=== PATIENT | male | born 1995 | race Native Hawaiian/Other Pacific Islander ===

== ENCOUNTER 2018-12-31 20:55 | Emergency (ER) | payer OTHER ==
[~2018-12-31] VITALS: Ht 185.4 cm; Wt 85.7 kg
[~2018-12-31 20:55] MED LIST: ALBU90OI INH; AMOX250CH PO; AMOX500 PO; AMOX50SU PO; ATOM25; ATOM40; HYDACE5 PO; IBUP100S PO; Motrin600 MG PO; RXCODACESY; TRAZ50
== END 2018-12-31 22:54 | disposition home or self-care (01) ==
LOC: ER 20:55
DX: S92.001A Unspecified fracture of right calcaneus, initial encounter for closed fracture (principal); W17.89XA Other fall from one level to another, initial encounter; Z79.899 Other long term (current) drug therapy; Z79.891 Long term (current) use of opiate analgesic
CPT/HCPCS: 29515; 70450; 72100; 73630; 99284-25

== ENCOUNTER 2020-05-14 10:23 | Emergency (ER) | payer OTHER ==
[~2020-05-14] VITALS: Ht 188 cm; Wt 95.2 kg
[2020-05-14] MEDS ORDERED: BENZ100A PO (12:03)
== END 2020-05-14 12:19 | disposition home or self-care (01) ==
LOC: ER 10:23
DX: U07.1 COVID-19 (principal); J12.82 Pneumonia due to coronavirus disease 2019; J20.9 Acute bronchitis, unspecified
CPT/HCPCS: 99284; A9270

== ENCOUNTER 2022-02-01 14:58 | Emergency (ER) | payer OTHER ==
[~2022-02-01] VITALS: Ht 188 cm; Wt 95.2 kg
[~2022-02-01 14:58] MED LIST changes: +BENZ100A PO
== END 2022-02-01 16:37 | disposition home or self-care (01) ==
LOC: ER 14:58
DX: S01.511A Laceration without foreign body of lip, initial encounter (principal); S01.81XA Laceration without foreign body of other part of head, initial encounter; Y04.2XXA Assault by strike against or bumped into by another person, initial encounter; Z87.891 Personal history of nicotine dependence
CPT/HCPCS: 12011; 99283-25

== ENCOUNTER 2022-02-06 14:40 | Emergency (ER) | payer OTHER ==
[~2022-02-06] VITALS: Ht 188 cm; Wt 95.2 kg
== END 2022-02-06 15:26 | disposition home or self-care (01) ==
LOC: ER 14:40
DX: S01.511D Laceration without foreign body of lip, subsequent encounter (principal); X58.XXXD Exposure to other specified factors, subsequent encounter
CPT/HCPCS: 99281

== ENCOUNTER → 2022-04-19 | Outpatient (CLI) | payer OTHER ==
[2022-04-22 12:09] LABS: HIV AB/P24 AG SCREEN Non Reactive (Non Reactive)
[2022-04-23 00:09] LABS: CHLAMYDIA BY NAA Negative (Negative); GONOCOCCUS BY NAA Negative (Negative); TRICH VAG BY NAA Negative (Negative)
[2022-04-23 00:09] LABS: HBSAG SCREEN Negative (Negative); HCV AB <0.1 (0.0-0.9); HEP A AB, IGM Negative (Negative); HEP B CORE AB, TOT Negative (Negative)
== END | disposition home or self-care (01) ==
LOC: LAB SHORT 19:08
PROVIDERS: Chiropractor
DX: Z72.51 High risk heterosexual behavior (principal)
CPT/HCPCS: 86592; 86695; 86696; 86704; 86708; 86803; 87340; 87389; 87491; 87591; 87661

== ENCOUNTER 2022-04-21 13:47 | Emergency (ER) | payer OTHER ==
[~2022-04-21] VITALS: Ht 188 cm; Wt 86.2 kg
== END 2022-04-21 15:35 | disposition home or self-care (01) ==
LOC: ER 13:47
DX: M25.562 Pain in left knee (principal)
CPT/HCPCS: 73562-LT

== ENCOUNTER 2023-09-28 04:02 | Emergency (ER) | payer OTHER ==
[~2023-09-28] VITALS: Ht 182.9 cm; Wt 90.7 kg
[2023-09-28] MEDS ORDERED: Amoxicillin/Clavulanate K 875 MG Tab PO ONE (04:15)
[2023-09-28 06:00] VITALS: BP 131/73
[2023-09-28] MEDS ORDERED: AMOCLA875 PO (06:17)
== END 2023-09-28 06:20 | disposition home or self-care (01) ==
LOC: ER 04:02
DX: S01.85XA Open bite of other part of head, initial encounter (principal); S01.152A Open bite of left eyelid and periocular area, initial encounter; W54.0XXA Bitten by dog, initial encounter; F17.210 Nicotine dependence, cigarettes, uncomplicated
CPT/HCPCS: 12013; 99283-25; A9270

== ENCOUNTER → 2024-06-09 | Outpatient (CLI) | payer OTHER ==
[~2024-06-09] MED LIST changes: +AMOCLA875 PO
[2024-06-10 18:18] LABS: HEPATITIS C AB CIA INTERP Negative (Negative); HEPATITIS C ANTIBODY CIA INDEX 0.15 IV
[2024-06-10 18:49] LABS: HIV 1,2 COMBO ANTIGEN/ANTIBODY Negative (Negative)
[2024-06-10 19:04] LABS: HEPATITIS B SURFACE ANTIGEN Negative (Negative)
[2024-06-11 14:51] LABS: APTIMA MEDIA TYPE Urine; C. TRACHOMATIS BY TMA Negative (Negative); N. GONORRHOEAE BY TMA Negative (Negative); SPECIMEN SOURCE Urine; T. VAGINALIS BY TMA Negative (Negative)
== END ==
LOC: LAB SHORT 17:18 → LAB 17:18
PROVIDERS: Registered Nurse Community Health
DX: Z11.3 Encounter for screening for infections with a predominantly sexual mode of transmission (principal); Z20.2 Contact with and (suspected) exposure to infections with a predominantly sexual mode of transmission
CPT/HCPCS: 86592; 86803; 87340; 87389; 87491; 87591; 87661